=== PATIENT | female | born 1955 | race Caucasian/White ===

== ENCOUNTER 2017-01-03 15:09 | Emergency (ER) | payer MEDICAID ==
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
[2017-01-03] MEDS ORDERED: LET GEL TOPICAL 1 EA SYR TP ONE (15:19)
[2017-01-03 15:26] VITALS: RESP 18
[2017-01-03] MEDS ORDERED: IBUPROFEN 600 MG TAB PO ONE ×2 (17:19→17:25)
[2017-01-03 17:37] VITALS: BP 110/62
[2017-01-03 18:57] VITALS: PULSE 99; TEMP 97.7; O2SAT 97
== END 2017-01-03 19:00 | disposition home or self-care (01) ==
LOC: EDUNIT#
DX: S01.81XA Laceration without foreign body of other part of head, initial encounter (principal); S01.01XA Laceration without foreign body of scalp, initial encounter; S60.221A Contusion of right hand, initial encounter; S60.222A Contusion of left hand, initial encounter; S40.211A Abrasion of right shoulder, initial encounter; S20.312A Abrasion of left front wall of thorax, initial encounter; Y04.0XXA Assault by unarmed brawl or fight, initial encounter; Y92.009 Unspecified place in unspecified non-institutional (private) residence as the place of occurrence of the external cause

== ENCOUNTER 2017-01-11 14:13 | Emergency (ER) | payer MEDICAID ==
[2017-01-11 14:26] VITALS: TEMP 98.2
[2017-01-11] MEDS ORDERED: SKIN ADHESIVE (DERMABOND) 1 EACH TP ONE (14:29)
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
[2017-01-11 15:42] VITALS: BP 126/73; PULSE 78; RESP 20; O2SAT 94
== END 2017-01-11 15:42 | disposition home or self-care (01) ==
PROC: 0HQ1XZZ Repair Face Skin, External Approach (ICD-10-PCS; principal; 2017-01-11)
DX: S01.81XA Laceration without foreign body of other part of head, initial encounter (principal); S06.0X0A Concussion without loss of consciousness, initial encounter; W01.198A Fall on same level from slipping, tripping and stumbling with subsequent striking against other object, initial encounter

== ENCOUNTER → 2017-04-21 | Outpatient (CLI) | payer MEDICAID | LOC: FIMAGING 14:17 | PROVIDERS: ATTEND Physician Assistant Medical | DX: Z12.31 Encounter for screening mammogram for malignant neoplasm of breast (principal); Z80.3 Family history of malignant neoplasm of breast | CPT/HCPCS: G0202 ==

== ENCOUNTER 2017-10-06 05:05 | Emergency (ER) | payer MEDICAID ==
[2017-10-06 05:11] VITALS: TEMP 97.5
--- NOTE | 2017-10-06 06:05 | EDPHY ---
H & P Stated Complaint: LACERATION, TRIPPED, HIT LEFT HEAD 0230, NO LOC Time Seen by Provider: 10/06/17 05:15 HPI/ROS: HPI: The patient presents with left-sided scalp laceration which occurred at about 2:30 a.m. This morning. She has got up to use the bathroom in the middle of the night and had a fall when she tripped, hitting her head on a wooden door frame. She did not lose consciousness. She does not have any vomiting, vision change, behavioral change, numbness or weakness of her arms or legs. She has a very mild headache. She did not sustain any other injuries. REVIEW OF SYSTEMS Constitutional: No fever, no chills. Eyes: No discharge. ENT: No sore throat. Cardiovascular: No chest pain, no palpitations. Respiratory: No cough, no shortness of breath. Gastrointestinal: No abdominal pain, no vomiting. Genitourinary: No hematuria. Musculoskeletal: No back pain. Skin: No rashes. Neurological: No headache. PMHx: Anxiety and depression, chronic back pain, GERD TRAUMA PHYSICAL General Appearance: Alert, no distress Head: Atraumatic Eyes: Pupils equal, round, reactive ENT, Mouth: No hemotypanium, no oral trauma Neck: Non- tender, trachea midline Respiratory: No chest wall tenderness, no subcutaneous air, lungs clear bilaterallty Cardiovascular: Regular rate and rhythm Abdomen: Abdomen is soft and non-tender, pelvis stable Skin: Left temporal occipital scalp with 5 cm laceration which is gaping but does not appear to involve the galea Back: No midline T/L/S pain Extremities: Non-tender, full range of motion Neurological: A&Ox3, GCS=15,normal motor function with 5/5 strength in all 4 extremities, normal sensory exam Source: Patient Exam Limitations: No limitations - Personal History Current Tetanus/Diphtheria Vaccine: Yes - Medical/Surgical History Hx Asthma: No Hx Chronic Respiratory Disease: No Hx Diabetes: No Hx Cardiac Disease: No Hx Renal Disease: No Hx Cirrhosis: No Hx Alcoholism: No Hx HIV/AIDS: No Hx Splenectomy or Spleen Trauma: No Other PMH: anxiety/depression. chronic back pain. GERD - Social History Smoking Status: Never smoked Constitutional: Initial Vital Signs Temperature (C) 36.4 C 10/06/17 05:08 Heart Rate 83 10/06/17 05:08 Respiratory Rate 20 03/29/18 05:08 Blood Pressure 186/109 H 10/06/17 05:08 O2 Sat (%) 96 10/06/17 05:08 O2 Delivery Mode Room Air Allergies/Adverse Reactions: No Known Allergies Allergy (Verified 10/06/17 05:08) Home Medications: Medication Instructions Recorded Omeprazole 01/03/17 Paxil 01/03/17 Medical Decision Making Procedures: LACERATION REPAIR Procedure: Laceration repair. Verbal consent was obtained from the patient. The linear 5 cm laceration on the left scalp was anesthetized using lidocaine with epinephrine. The wound was scrubbed, draped and explored to its base with a gloved finger. There were no deep structures involved. . The wound was repaired with steph. The wound repair was simple. The procedure was performed by myself. Differential Diagnosis: This is a 62-year-old female who presents after a fall, hitting a door frame when she got up at night to use the bathroom. She did not lose consciousness. She does not have a headache, vision changes, vomiting, behavioral change. She has sustained a laceration to her scalp which we will repair here with steph. I have explained that she may have suffered a mild concussion she does not meet criteria for CT scan of her head. She was advised to rest and take ibuprofen as needed. I have given her return precautions. Departure - Departure Disposition: Home, Routine, Self-Care Clinical Impression: Head injury Scalp laceration Qualifiers: Encounter type: initial encounter Qualified Code(s): S01.01XA - Laceration without foreign body of scalp, initial encounter Condition: Good Instructions: Staple Care (ED) Additional Instructions: Your steph should be removed in 10 days. You can come to the emergency department for this. Please make sure to drink get plenty of rest. You should take ibuprofen as needed for your headache. A CT scan of your brain was not indicated today as you did not meet criteria for this, however you likely are suffering from a mild concussion. Referrals: Laurence Castillo PA [Primary Care Provider] - As per Instructions Stand Alone Forms: Work Excuse
[2017-10-06 06:17] VITALS: BP 161/98; PULSE 80; RESP 18; O2SAT 97
== END 2017-10-06 06:17 | disposition home or self-care (01) ==
PROC: 0HQ0XZZ Repair Scalp Skin, External Approach (ICD-10-PCS; principal; 2017-10-06)
DX: S09.90XA Unspecified injury of head, initial encounter (principal); S01.01XA Laceration without foreign body of scalp, initial encounter; W01.198A Fall on same level from slipping, tripping and stumbling with subsequent striking against other object, initial encounter; Y92.002 Bathroom of unspecified non-institutional (private) residence as the place of occurrence of the external cause; Y99.8 Other external cause status; Y93.89 Activity, other specified

== ENCOUNTER 2018-07-24 12:43 | Emergency (ER) | payer BC, MEDICAID ==
[2018-07-24] MEDS ORDERED: TDAP ADULT 0.5 ML INJ (BOOSTRIX) IM ONE (14:08)
[2018-07-24] MEDS ORDERED: LET GEL TOPICAL 1 EA SYR TP ONE (14:32)
--- NOTE | 2018-07-24 14:32 | EDPHY ---
General Time Seen by Provider: 07/24/18 14:25 Narrative: CLINICAL IMPRESSION: Right hand laceration, 24 hr old ASSESSMENT/PLAN: Patient is a 62-year-old female with a significant history of hypertension, GERD and depression who presents for evaluation of right hand laceration sustained yesterday evening. Patient is not toxic appearing, she is in no distress. Physical examination reveals a superficial 1.5 cm laceration on the right mid palm, in between the 2nd and 3rd metacarpals. There is no evidence of deep structure involvement, neurovascular compromise, foreign body, or bony involvement. The wound was not contaminated, tetanus status was updated today. The wound was copiously irrigated and then a sterile dressing was placed. As this laceration occurred nearly 24 hr prior, risk of infection is high. The wound is not gaping, I do not feel there is benefit in closing. There were no early signs of infection including cellulitis or drainage. The patient is well established at [facility], I have discussed that I would like her to return in 48 hr for a wound check. The patient will keep clean and dry until that time. Return precautions discussed- she will return for increased pain, signs of infection, fever, vomiting or for any other concerns. Patient verbalizes understanding and she is in agreement with this plan. DIFFERENTIAL DIAGNOSIS: Includes but not limited to laceration of tendon or vascular structure, underlying fracture, laceration with retained FB. CHIEF COMPLAINT: Right hand laceration HPI: Patient is a 62-year-old female with a history of depression, hypertension and GERD who presents to the emergency department after sustaining a hand laceration that occurred last evening at 6:00 p.m.. Patient reports she had a couple cocktails, accidentally cut her hand on a can lid. She cleansed it and put a Band-Aid on it. When she took a look at it this morning she did not realize how bad the lacerations seemed. Patient presents for further evaluation. Patient denies any numbness or tingling of her hand or digits. There has been no persistent bleeding. She denies any significant pain. She is right-hand dominant, not up-to-date on tetanus. Denies any other complaint or injury PAST MEDICAL HISTORY: Hypertension, GERD and depression Pertinent Past Surgical History: Not contributory Social History: Alcohol REVIEW OF SYSTEMS: All other systems negative Constitutional: No fever, no chills Musculoskeletal: No deformity, no joint pain Skin: Right hand laceration Neurological: No sensory loss or weakness. PHYSICAL EXAM: General Appearance: Well-appearing, no acute distress and not toxic-appearing Neurological: Alert and oriented x 3 Skin: No rashes. Warm and dry. Upper Extremities: Right hand reveals approximately 1.5 cm superficial laceration on the palmar aspect mid palm in between the pointer and middle metacarpals. There is no surrounding erythema, it is not actively bleeding. It is superficial with no obvious deep structure involvement. Full range of motion intact, no tenderness, no ecchymosis or edema. 2 point discrimination intact at each digit. Lower Extremities: Intact distal pulses, No edema, No tenderness, No cyanosis, full range of motion intact, No calf tenderness bilaterally. MEDICAL DECISION MAKING: Patient was seen independently. Secondary supervising physician at time of evaluation was Dr. Norris. Diagnosis: Right hand laceration. New, requires workup Summary: See assessment and plan for summary of ED visit Clinical lab tests: Not applicable. Independent visualization of images, tracing, or specimens not applicable. Decision to obtain medical records or history from someone other than the patient no Review / Summarize previous medical records no Discussed patient with another provider Dr. Norris - History Smoking Status: Never smoked - Objective Vital Signs: Initial Vital Signs Temperature (C) 36.6 C 07/24/18 12:53 Heart Rate 72 07/24/18 12:53 Respiratory Rate 18 07/24/18 12:53 Blood Pressure 171/90 H 07/24/18 12:53 O2 Sat (%) 98 07/24/18 12:53 O2 Delivery Mode Room Air Allergies/Adverse Reactions: No Known Allergies Allergy (Verified 07/24/18 12:52) Home Medications: Medication Instructions Recorded Omeprazole 01/03/17 Paxil 01/03/17 Lisinopril 07/24/18 Medications Given: Discontinued Medications Diphtheria/Tetanus/Acell Pertussis (Boostrix) 0.5 ml IM .ONCE ONE Stop: 07/24/18 14:09 Last Admin: 07/24/18 14:26 Dose: 0.5 ml Tetracaine/Epinephrine/Lidocaine (Let Gel Topical) 1 ea TP EDNOW ONE Stop: 07/24/18 14:33 Last Admin: 07/24/18 14:47 Dose: 1 ea Departure - Departure Disposition: Home, Routine, Self-Care Clinical Impression: Hand laceration Qualifiers: Encounter type: initial encounter Foreign body presence: without foreign body Laterality: right Qualified Code(s): S61.411A - Laceration without foreign body of right hand, initial encounter Condition: Good Instructions: Laceration (ED) Additional Instructions: DISCHARGE INSTRUCTIONS FROM YOUR DOCTOR Thank you for visiting our emergency department today. Please keep in mind that discharge from the emergency department does not mean that there is nothing wrong - it simply means that we have not identified an emergency condition that requires further evaluation or treatment in the hospital. You should always plan to follow up with primary care for re-evaluation of your condition in the next 2-3 days. Keep wound clean, covered and dry for 24-48 hours. Then remove dressing, clean at least twice daily or when soiled with soap and water, apply antibiotic ointment and dressing. Do not soak the wound. [facility] for a wound check. Tylenol every 4-6 hours as directed as needed for pain. Do not exceed 4000 mg in 24 hours. Ibuprofen as directed every 6-8 hours with food as needed for pain. Stop for stomach upset. Do not exceed 2400 mg in 24 hours. Continue your regular medications as prescribed. Return for signs of wound infection ie: redness, swelling, drainage, foul odor, red streaks, fever, chills, pain, bleeding, if the stitches pop, if the wound opens or for any other new, worsening or worrisome symptoms. People present with illnesses and injuries in different ways, and it is always possible that we have missed something. You may always return for re-evaluation if symptoms worsen or if they are not improving or if you develop new/different symptoms. Again, thank you for choosing our emergency department. We hope that you feel better. Referrals: [facility] [Other] - 1-2 days without fail
[2018-07-24 15:45] VITALS: BP 169/86
== END 2018-07-24 15:43 | disposition home or self-care (01) ==
DX: S61.411A Laceration without foreign body of right hand, initial encounter (principal); I10 Essential (primary) hypertension; F32.9 Major depressive disorder, single episode, unspecified; W26.8XXA Contact with other sharp object(s), not elsewhere classified, initial encounter; Y93.G1 Activity, food preparation and clean up; Z23 Encounter for immunization